=== PATIENT | female | born 1975 | race Caucasian/White ===

== ENCOUNTER 2017-07-27 05:55 | Inpatient (IN) | payer OTHER ==
[2017-07-22 12:32] LABS: % IMMATURE GRANULYOCYTES 0.5 % (0.0-1.1); ABSOLUTE IMMATURE GRANULOCYTES 0.04 10^3/uL (0.00-0.10); ADD DIFF? NO; ADD MORPH? NO; ADD SCAN? NO; ATYPICAL LYMPHOCYTE FLAG 0 (0-99); FRAGMENT RBC FLAG 0 (0-99); HEMATOCRIT 42.4 % (38.0-47.0); HEMOGLOBIN 14.4 g/dL (12.6-16.3); LEFT SHIFT FLG 0 (0-99); LIPEMIA HEMOLYSIS FLAG 90 (0-99); MEAN CELL VOLUME 91.4 fL (81.5-99.8); PLATELET CLUMPS FLAG 0 (0-99); PLATELET COUNT 327 10^3/uL (150-400); RED BLOOD CELL COUNT 4.64 10^6/uL (4.18-5.33); RED CELL DISTRIBUTION WIDTH 12.1 % (11.5-15.2)
[2017-07-22 12:42] LABS: INR 0.92 (0.83-1.16); PROTIME(PATIENT) 12.3 SEC (12.0-15.0)
[2017-07-22 12:43] LABS: APTT 27.1 SEC (23.0-38.0)
--- NOTE | 2017-07-23 08:32 | CPEKG ---
Heart Rate: 114 RR Interval: 526 P-R Interval: 132 QRSD Interval: 72 QT Interval: 332 QTC Interval: 458 P Glasgow: 15 QRS Glasgow: 5 T Wave Glasgow: 14 EKG Severity - OTHERWISE NORMAL ECG - EKG Impression: SINUS TACHYCARDIA Electronically Signed By: Gabi Henriquez 23-Jul-2017 21:24:09
--- NOTE | 2017-07-26 16:20 | GHP ---
[f rep st] PREOP HISTORY AND PHYSICAL DATE OF ADMISSION: 07/27/2017 HISTORY OF PRESENT ILLNESS: The patient is a pleasant 41-year-old, right-hand dominant woman well known to my practice. The patient has had a very long history of chronic neck pain and upper extremity symptoms. Twelve years ago, she underwent a C5 to C7 anterior diskectomy, fusion and instrumentation by myself. Postoperatively, she did well and her symptoms worsened later. 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 Over the years, she has dealt with chronic pain and although the second surgery did help as well, she is now dealing with chronic neck pain mainly due to facet joint arthropathy and severe degenerative disk disease. She had an incident about 5-weeks ago when she was swimming, she felt sudden onset of bilateral upper extremity paresthesias and on MRI is showing a large disk herniation at C7 -T1 as well as severe junctional degenerative disk disease C4-5 and C7-T1. She is being admitted for revision surgery. Patient denies any loss of bowel or bladder control, but does have some loss of balance. She has tried numerous nonoperative treatments for the past 10-years including facet joint injections, facet joint ablation, physical therapy, massage therapy, TENS unit, Medrol Dosepak, numerous pain medications, which she is currently on, and acupuncture. None of these have given her significant relief. She also has developed adrenal insufficiency and has chronic daily headaches. SOCIAL HISTORY: Negative for tobacco. She uses alcohol occasionally. FAMILY HISTORY: Significant for lymphoma and heart disease. PAST MEDICAL HISTORY: Asthma, headaches, and depression. 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 ALLERGIES: To medications are none. MEDICATIONS: Include: 1. Nucynta ER. 2. Oxy IR. 3. Horizant. 4. Amrix. PHYSICAL EXAM: GENERAL: The patient is alert and oriented x3. Gait is normal. CARDIAC: Regular rate and rhythm without detectable murmur, rub or gallop. LUNGS: Clear to auscultation. She has no wheezing or rhonchi. NEUROLOGIC: Cervical range of motion is diminished in all four directions. Strength of bilateral upper extremities and lower extremities is 5/5 throughout. Light touch is diminished in the left thumb, index, long and ring finger and diminished in the right small finger. Reflexes are all 1/4. Spurling exam is negative x2. She is tender to palpation posteriorly proximal and distal to the previous scar along the cervical spine. Her cervical wounds anteriorly and posteriorly are well healed. There are no signs of infection. RADIOGRAPHIC STUDIES: Plain films including flexion and extension, lateral C- spine film shows a retrolisthesis at C4-5 with extension and instability. MRI shows severe degenerative disk disease, which is junctional at C4-5 and C7-T1. There is also what appears to be a large disk herniation at C7-T1 with mild stenosis, but no myelomalacia. IMPRESSION: 1. Junctional severe degenerative disk disease with retrolisthesis at C4-5. 2. Junctional severe degenerative disk disease C7-T1 with central disk herniation. 3. Twelve years status post C5-C7 anterior cervical discectomy and fusion with instrumentation. 4. Eleven years status post revision anterior C6-7 and posterior C5-C7 instrumentation and fusion. 5. Chronic cervicalgia. PLAN: The patient will undergo revision surgery as she has undergone 10-years of chronic pain management with really overall no improvement. She has a nonsmoker. She has no psychological issues that would impede her recovery. She is motivated to get better. My recommendation is an anterior approach removing the C5-C7 plate and screws, C4-5 anterior diskectomy and fusion, C7-T1 anterior diskectomy and fusion with instrumentation at both levels. Postoperatively, we will use a hard cervical collar. She also knows not to take anti-inflammatories postoperatively. She has been instructed of the potential risks, benefits, and possible complications including, but not limited to, dural tear with CSF leak, meningitis, nerve root injury, partial or complete paralysis, infection, dysphagia, aphonia, DVT, PE, pneumonia, stroke, heart attack, hemorrhage, blindness, and . Questions have been answered thoroughly. She will be n.p.o. after midnight tonight. I anticipate due to swallowing difficulties, and potential pain management issues, that the patient will require at least a 3-night hospital stay including the night of surgery. /[id number]/MODL MTDD
[~2017-07-27 05:55] MED LIST: LIDOCAINE 1% 2 ML INJ ONE; VANCOMYCIN PHARMACY TO DOSE MISC ONE
[2017-07-27] MEDS ORDERED: VANCOMYCIN HCL/NORMAL SALINE 250 ML IV ONE ×2 (06:00→07:15)
[2017-07-27] MEDS ORDERED: GENTAMICIN 80 MG/NACL 100 ML IV ONE ×2 (06:00→07:15)
[2017-07-27] MEDS ORDERED: LR 1,000 ML IV ONE (06:37)
[2017-07-27] MEDS ORDERED: LIDOCAINE 1% 2 ML INJ ID PRN (06:37)
[2017-07-27] MEDS ORDERED: AVITENE POWDER 1 GM JAR TP ONE (06:55)
[2017-07-27] MEDS ORDERED: THROMBIN (BOVINE) 20,000 UNIT VIAL TP ONE (06:55)
[2017-07-27] MEDS ORDERED: BACITRACIN 50,000 UNITS/10 ML SYR IRR ONE (06:56)
[2017-07-27] MEDS ORDERED: MIDAZOLAM 2 MG/2 ML VIAL IVP ONE (06:58)
--- NOTE | 2017-07-27 06:59 | PDANEPAE ---
ANE History of Present Illness here for revision ACDF ANE Past Medical History - Cardiovascular History Hx Hypertension: No Hx Arrhythmias: No Hx Chest Pain: No Hx Coronary Artery / Peripheral Vascular Disease: No Hx CHF / Valvular Disease: No Hx Palpitations: No Cardiovascular History Comment: IRREGULAR HEART RHYTHM IN PAST-NOW RESOLVED HAD ILR - NO EPISODES SINCE - CAUSED BY MOLD IN HOME - Pulmonary History Hx COPD: No Hx Asthma/Reactive Airway Disease: Yes Hx Recent Upper Respiratory Infection: No Hx Oxygen in Use at Home: No Hx Sleep Apnea: No Sleep Apnea Screening Result - Last Documented: Negative Pulmonary History Comment: EXERCISE INDUCED ASTHMA. PAST HX -POST ANESTH NEEDED NEBULIZER - Neurologic History Hx Cerebrovascular Accident: No Hx Seizures: No Hx Dementia: No Neurologic History Comment: MIGRAINES - Endocrine History Hx Diabetes: No Hypothyroid: Yes Hyperthyroid: No Endocrine History Comment: HYPOTHYROID. ADRENAL INSUFFICIENCY - Renal History Hx Renal Disorders: No Renal History Comment: BLADDER SPASMS IN PAST POST CATHETER - Liver History Hx Hepatic Disorders: No - Neurological & Psychiatric Hx Hx Neurological and Psychiatric Disorders: Yes Neurological / Psychiatric History Comment: ANXIETY & DEPRESSION - Cancer History Hx Cancer: No - Congenital Disorder History Hx Congenital Disorders: No - GI History Hx Gastrointestinal Disorders: No - Other Health History Other Health History: NEG - Chronic Pain History Chronic Pain: Yes (NECK & HEADACHES) - Surgical History Prior Surgeries: SPINAL FUSION & REVISION. BREAST REDUCTION. MYOMECTOMY. APPENDECTOMY. ILR IMPLANTED & REMOVED ANE Review of Systems Review of systems is: negative Review of Systems: - Exercise capacity Exercise capacity: >=4 METS METS (RN): 4 METS ANE Patient History - Allergies Allergies/Adverse Reactions: Penicillins Allergy (Intermediate, Verified 06/10/13 12:24) Hives - Home Medications Home medications: home medication list seen and reviewed Home Medications: Albuterol [Proventil Inhaler HFA (*)] 1 - 2 puffs IH DAILY PRN 07/12/17 [Last Taken 05/25/17] Amitriptyline HCl [Elavil 10 mg (*)] 30 mg PO HS 07/12/17 [Last Taken 07/26/17] Cyclobenzaprine HCl [Amrix] 30 mg PO DAILY 07/12/17 [Last Taken 07/22/17] Gabapentin Enacarbil [Horizant] 600 mg PO BID 07/12/17 [Last Taken 07/27/17] Hydrocortisone [Cortef 10 mg (*)] 10 - 30 mg PO BID 07/12/17 [Last Taken 06:00] Ibuprofen/Famotidine [Duexis 800-26.6 mg Tablet] 1 each PO BID 07/12/17 [Last Taken 07/06/17] Kavinace Ultram Pm 2 mg PO HS PRN 07/12/17 [Last Taken 07/06/17] LORazepam [Ativan (*)] 1 - 3 mg PO DAILY PRN 07/12/17 [Last Taken 07/22/17] LORazepam [Ativan 2 mg tab] 1 - 3 tab PO HS 07/12/17 [Last Taken 07/22/17] Levomilnacipran HCl [Fetzima] 120 mg PO DAILY 07/12/17 [Last Taken 07/27/17] Nature Thyroid 113.75mg 1 each PO DAILY 07/12/17 [Last Taken 07/27/17 05:00] Progesterone, Micronized [Progesterone] 200 mg PO DAILY 07/12/17 [Last Taken 10/01] Sumatriptan Succinate [Imitrex] 100 mg PO DAILY PRN 07/12/17 [Last Taken ] Tapentadol HCl [Nucynta ER] 50 mg PO BID 07/12/17 [Last Taken 07/26/17 19:30] Tapentadol HCl [Nucynta ER] 100 mg PO BID 07/12/17 [Last Taken Unknown] clonazePAM [klonoPIN (*)] 1 mg PO DAILY 07/12/17 [Last Taken 07/22/17] diphenhydrAMINE HCL [Unisom] 50 - 100 mg PO HS PRN 07/12/17 [Last Taken 07/26/17 ] oxyCODONE HCL/ACETAMINOPHEN [Percocet 7.5-325 mg Tablet] 1 each PO Q6HRS PRN [Last Taken 07/26/17 06:00] traMADol [Ultram 50 mg (*)] 50 mg PO BID PRN 07/12/17 [Last Taken 07/06/17] - NPO status NPO Status: no food or drink >8 hours NPO Since - Liquids (Date): 07/26/17 NPO Since - Liquids (Time): 22:30 NPO Since - Solids (Date): 07/26/17 NPO Since - Solids (Time): 18:30 - Smoking Hx Smoking Status: Former smoker - Family Anes Hx Family Hx Anesthesia Complications: NEG ANE Labs/Vital Signs - Labs Result Diagrams: 07/22/17 11:56 - Vital Signs Blood Pressure: 154/105 Heart Rate: 116 Respiratory Rate: 16 O2 Sat (%): 95 Height: 172.72 cm Weight: 84.368 kg ANE Physical Exam - Airway Neck exam: FROM Mallampati Score: Class 1 - Pulmonary Pulmonary: no respiratory distress - Cardiovascular Cardiovascular: regular rate and rhythym - ASA Status ASA Status: II ANE Anesthesia Plan Anesthesia Plan: general endotracheal anesthesia
[2017-07-27] MEDS ORDERED: fentaNYL 100 MCG/2 ML INJ ONE ×2 (07:05→07:54)
[2017-07-27] MEDS ORDERED: GENTAMICIN 20 MG/2 ML IV ONE (07:15)
[2017-07-27] MEDS ORDERED: PROPOFOL/EMULSION 500 MG/50 ML BOTTLE IV ONE ×2 (07:15→08:41)
--- NOTE | 2017-07-27 07:17 | PDHPUP ---
History & Physical Update H&P update statement: This history and physical update is based on an assessment of the patient which was completed after admission or registration (within 24 hours), but prior to the surgery/procedure. H&P update: H&P reviewed & patient examined, no change in patient's condition since H&P completed
[2017-07-27] MEDS ORDERED: KETAMINE 100 MG/10 ML SYR ONE (07:24)
[2017-07-27] MEDS ORDERED: PROPOFOL 200 MG/20 ML VIAL ONE ×2 (07:50→10:32)
[2017-07-27] MEDS ORDERED: NALOXONE HCL 0.4 MG/ML INJ IVP PRN (09:14)
[2017-07-27] MEDS ORDERED: fentaNYL 100 MCG/2 ML INJ IVP PRN (09:14)
[2017-07-27] MEDS ORDERED: LABETALOL HCL 50 MG/10 ML SYR IVP PRN (09:14)
[2017-07-27] MEDS ORDERED: ONDANSETRON 4 MG/2 ML VIAL IVP PRN ×2 (09:14→12:03)
[2017-07-27] MEDS ORDERED: PROMETHAZINE HCL 25 MG/ML INJ IVP PRN (09:14)
[2017-07-27] MEDS ORDERED: DEXAMETHASONE 4 MG/ML VIAL IVP PRN (09:14)
[2017-07-27] MEDS ORDERED: ALBUTEROL 3 ML DEYVIAL IH PRN (09:14)
[2017-07-27] MEDS ORDERED: HYDROmorphONE/DILAUDID 1 MG/ML INJ IVP PRN (09:14)
[2017-07-27] MEDS ORDERED: HYDROmorphONE/DILAUDID 2 MG/ML INJ ONE ×2 (09:25→11:24)
[2017-07-27] MEDS ORDERED: HYDROmorphONE/DILAUDID 1 MG/ML INJ ONE (11:54)
--- NOTE | 2017-07-27 11:56 | POSTANESTH ---
Post Anesthetic Evaluation Cardiovascular Status: Normal, Stable Respiratory Status: Normal, Stable Level of Consciousness/Mental Status: Can Participate in Eval Pain Control: Adequate, Prn Tx Ordered, Inadeq, Add Tx Required Nausea/Vomiting Control: Adequate, Prn Tx Ordered Complications Possibly Related to Anesthesia: None Noted
[2017-07-27] MEDS ORDERED: MAGNESIUM HYDROXIDE 30 ML UDCUP PO PRN (12:03)
[2017-07-27] MEDS ORDERED: ONDANSETRON DISINTEGRATING 4 MG TAB PO PRN (12:03)
[2017-07-27] MEDS ORDERED: LACTULOSE 20 GM/30 ML UDCUP PO PRN (12:03)
[2017-07-27] MEDS ORDERED: ZOLPIDEM TARTRATE 5 MG TAB PO PRN (12:03)
[2017-07-27] MEDS ORDERED: BISACODYL 10 MG SUPP PR PRN (12:03)
[2017-07-27] MEDS ORDERED: POLYETHYLENE GLYCOL 3350 17 GM PKT PO PRN (12:03)
[2017-07-27] MEDS ORDERED: diphenhydrAMINE 25 MG CAP PO PRN (12:03)
--- NOTE | 2017-07-27 12:03 | POSTOPPROG ---
Post Op Note Date of Operation: 07/27/17 Surgeon: Yani Schultz Etiquette Coach: Juice Bassett SA Anesthesiologist: Finn Berger Anesthesia: GET(General Endotracheal) Pre-op Diagnosis: junctional severe DDD C4-5 and C7-T1, s/p C5-7 ACDF/I Post-op Diagnosis: same Indication: severe cervicalgia, Headaches Procedure: Removal C5-7 inst, C4-5 and C7-T1 ACDF/I Findings: severe DDD and large osteophytes Inf/Abcess present in the surg proc area at time of surgery?: No Depth: Deep Incisional (Fascial) EBL: 100 cc Total fluids administered: 1300 cc Complications: None. No changes in neuromonitoring through out case.
[2017-07-27] MEDS ORDERED: ALBUTEROL 60 PUFFS/8 GM MDI IH PRN (12:14)
[2017-07-27] MEDS ORDERED: LORAZEPAM PO PRN (12:14)
[2017-07-27] MEDS ORDERED: NON-FORMULARY NEW DRUG (Sumatriptan Succinate [Imitrex] 100 MG) PO PRN (12:14)
[2017-07-27] MEDS ORDERED: NS 1,000 ML IV SCH (12:15)
[2017-07-27] MEDS ORDERED: ALBUTEROL 200 PUFFS/18 GM MDI IH PRN (12:43)
[2017-07-27] MEDS ORDERED: DEXAMETHASONE 10 MG/ML VIAL IV ONE (13:15)
[2017-07-27] MEDS ORDERED: DIAZEPAM 10 MG/2 ML SYR ONE (13:55)
[2017-07-27] MEDS: DIAZEPAM 10 MG/2 ML SYR IVP PRN ×2 (13:56→21:01)
[2017-07-27] MEDS ORDERED: ALBUTEROL 3 ML DEYVIAL ONE (15:15)
[2017-07-27] MEDS ORDERED: HYDROCORTISONE 100 MG/2 ML VIAL ONE (15:20)
[2017-07-27] MEDS ORDERED: LORazepam 2 MG/ML INJ ONE (15:24)
[2017-07-27] MEDS ORDERED: SUMAtriptan 50 MG TAB PO PRN (15:37)
[2017-07-27 15:46] LABS: % IMMATURE GRANULYOCYTES 0.6 % (0.0-1.1); ABSOLUTE IMMATURE GRANULOCYTES 0.14 10^3/uL (0.00-0.10); ADD DIFF? NO; ADD MORPH? NO; ADD SCAN? NO; ATYPICAL LYMPHOCYTE FLAG 0 (0-99); FRAGMENT RBC FLAG 0 (0-99); HEMATOCRIT 41.6 % (38.0-47.0); HEMOGLOBIN 14.1 g/dL (12.6-16.3); LEFT SHIFT FLG 0 (0-99); LIPEMIA HEMOLYSIS FLAG 90 (0-99); MEAN CELL HEMOGLOBIN 30.9 pg (27.9-34.1); MEAN CELL HEMOGLOBIN CONCENTR. 33.9 g/dL (32.4-36.7); MEAN CELL VOLUME 91.2 fL (81.5-99.8); PLATELET CLUMPS FLAG 10 (0-99); PLATELET COUNT 405 10^3/uL (150-400); RED BLOOD CELL COUNT 4.56 10^6/uL (4.18-5.33); RED CELL DISTRIBUTION WIDTH 12.9 % (11.5-15.2)
--- NOTE | 2017-07-27 15:53 | ASMTCMCOM ---
CM Note CM Note Notes: Pt is s/p C4-5, C7-T1 fusion and revision surgery. PT/OT pending. Pt transferred to ICU this afternoon. CM will follow for any d/c needs. Date Signed: 07/27/2017 03:52 PM Electronically Signed By:Ne Smiley
[2017-07-27] MEDS ORDERED: DEXMEDETOMIDINE HCL 400 MCG in NS 100 ML IV SCH (16:00)
[2017-07-27] MEDS: ACETAMINOPHEN 500 MG TAB PO SCH (16:11)
[2017-07-27] MEDS: HYDROCORTISONE 100 MG/2 ML VIAL IVP SCH (17:14)
[2017-07-27 17:51] LABS: ANION GAP 12 mEq/L (8-16); CALCIUM 7.6 mg/dL (8.5-10.4); CARBON DIOXIDE 19 mEq/l (22-31); CHLORIDE 109 mEq/L (97-110); CREATININE 0.5 mg/dL (0.6-1.0); GLOMERULAR FILTRATION RATE > 60; GLUCOSE 130 mg/dL (70-100); POTASSIUM 4.1 mEq/L (3.5-5.2); SODIUM 140 mEq/L (134-144)
[2017-07-27] MEDS: HYDROCORTISONE 10 MG TAB PO SCH (18:38)
--- NOTE | 2017-07-27 20:25 | GCON ---
[f rep st] CONSULTATION DATE OF CONSULTATION: 07/27/2017 REFERRING PHYSICIAN: Dr. Lares REASON FOR CONSULTATION: Shortness of breath, anxiety. HISTORY OF PRESENT ILLNESS: A 41-year-old female followed closely by Dr. Lares for chronic neck pain and upper extremity sequelae. Twelve years ago, she underwent C5 to C7 anterior diskectomy, fusion, and instrumentation. A year later, she underwent revision anterior surgery of nonunion of C6 and 7 and a C5- C7 posterior fusion. Over the years, she dealt with chronic pain due to facet joint arthropathy and severe degenerative disk disease. About 5 weeks ago, she was swimming and felt sudden onset of bilateral upper extremity paresthesias, and MRI showed large disk herniation at C7-T1. Today, she underwent removal of C5-C7 instruments, C4-5 and C7-T1 ACDF/I. The patient was transferred from the PACU to the floor and developed sudden onset of shortness of breath, gasping for air. Her oxygenation remained stable above the 90s. Per her surgeon's request, the patient has decreased her chronic pain medications to half the dose for the last 3 weeks and she denies any symptoms consistent with withdrawal, including shakes, diarrhea, abdominal cramping, or sweats. She normally takes Klonopin 1 mg in the morning and Ativan 2 mg at night. She may take an additional dose if needed. She was advised to stop taking these medications and use only the Valium prescribed for her spasms. REVIEW OF SYSTEMS: I completed a 10-point review of systems negative except as noted in HPI. PAST MEDICAL HISTORY: PTSD, Graham disease, depression, anxiety. SURGICAL HISTORY: Cervical fusion x3, appendectomy, myomectomy. SOCIAL HISTORY: Lives in [place]. She socially drinks alcohol. No cigarettes or tobacco. HOME MEDICATIONS: Ibuprofen as needed, Ativan 2 mg 1 to 2 tablets at bedtime, gabapentin 600 mg twice daily, Amrix 30 mg daily, tramadol 50 mg twice daily p.r.n., progesterone 200 mg daily, Cortef 10 to 30 mg twice daily, amitriptyline 30 mg at bedtime, Unisom as needed, clonazepam 1 mg p.o. daily, Kavinace Ultra PM 2 mg p.o. at bedtime p.r.n., Nucynta 50 mg twice daily, Nucynta 100 mg twice daily, Nature-Throid 113.75 mg daily, Fetzima 120 mg daily , albuterol 1 to 2 puffs p.r.n., Percocet 7.5/325 mg 1 p.o. at bedtime p.r.n., sumatriptan as needed, Ativan 1 to 3 mg p.o. daily p.r.n. ALLERGIES: Penicillins, doxycycline, and typhoid vaccine. PHYSICAL EXAMINATION: VITAL SIGNS: Temperature 36.9, blood pressure was 149/100 , heart rates 130s, respirations 30, 99% on 4 L. GENERAL: Patient gasping for air, tearful, rocking forth in bed. HEENT: Cervical collar in place, removed this. The surgical incision is clean. No evidence of hematoma or swelling. CARDIOVASCULAR: Tachycardic but regular. LUNGS: Clear to auscultation bilaterally. ABDOMEN: Soft, nontender, nondistended. Positive bowel sounds. GENITOURINARY: No Leone. MUSCULOSKELETAL: 5/5 upper and lower extremity strength. NEUROLOGIC: 2 through 12 intact. PSYCHIATRIC: Anxious, tearful, restless in bed. LABORATORY DATA: BMP is pending. WBC is 23, hemoglobin is 14, hematocrit 41, platelets 405. ASSESSMENT AND PLAN: 1. Acute shortness of breath: Differential included surgical wound hematoma versus laryngeal spasm versus anxiety. Anesthesiology was called and present during episode. No need for intubation. Patient received racemic epinephrine as well as high-dose steroids. Her symptoms improved with Ativan. Suspect this was more likely anxiety. 2. History of anxiety, posttraumatic stress disorder: Will provide p.r.n. Ativan. Resume home medications. No need for Precedex at this time, but is available with great concern of gagging and retching to disturb the surgical site and lead to hematoma. 3. Graham disease. We will stress-dose steroids overnight. We will provide IV fluids. 4. Cervical neck pain: Postop day [address] Lares. 5. Deep venous thrombosis prophylaxis: SCDs. 6. Diets: Per Surgery. DISPOSITION: The patient will be transferred to the SCU for closer monitoring. Thank you for this consultation. Please call if any questions. We will follow along. Critical care time spent: 75 min with patient bedside, reviewing records, and providing treatment plan and coordinating SDU gonzález. /[id number]/MODL MTDD
[2017-07-27] MEDS: Progesterone, Micronized [Progesterone] 200 MG PO SCH (21:00)
[2017-07-27] MEDS: PROGESTERONE,MICR 100 MG CAP PO SCH (21:01)
[2017-07-27] MEDS: VANCOMYCIN HCL/NORMAL SALINE 250 ML IV SCH (21:11)
[2017-07-27] MEDS: AMITRIPTYLINE HCL 10 MG TAB PO SCH (21:30)
[2017-07-27] MEDS: LORazepam 2 MG/ML INJ IVP PRN (22:58)
[2017-07-28] MEDS: ACETAMINOPHEN 500 MG TAB PO SCH ×4 (00:35→21:53)
[2017-07-28] MEDS: GABAPENTIN ENACARBIL 600 MG PO SCH ×3 (00:36→20:43)
[2017-07-28] MEDS: FAMOTIDINE 20 MG TAB PO SCH ×3 (00:36→20:44)
[2017-07-28] MEDS: SENNOSIDES/DOCUSATE SODIUM TAB PO SCH ×3 (00:36→20:45)
[2017-07-28] MEDS: TAPENTADOL HCL 50 MG PO SCH ×3 (00:37→20:55)
[2017-07-28] MEDS: TAPENTADOL HCL 100 MG PO SCH ×3 (00:37→20:54)
[2017-07-28] MEDS: HYDROCORTISONE 100 MG/2 ML VIAL IVP SCH ×2 (00:45→06:20)
[2017-07-28] MEDS: DIAZEPAM 10 MG/2 ML SYR IVP PRN (03:18)
[2017-07-28] MEDS: oxyCODONE IR 5 MG TAB PO PRN ×4 (06:19→18:22)
--- NOTE | 2017-07-28 07:40 | SOAPPROG ---
SOAP Progress Note Assessment/Plan: Assessment: Pt is s/p removal C5-7 anterior instrumentation, and C4-5 and C7-T1 ACDF/I. Pt had severe anxiety/possible laryngospasm resulting in transfer to step down. Pt remains well oxygenated and neuro intact. Plan: 07/28/17 07:36 OK to transfer to . PT, OT, speech therapy. Subjective: Pt states she's doing better. No new arm or leg symptoms. Pt denies sob. Pt complains of trapezius pain and wants more pain medication. Objective: Vital Signs Temp Pulse Resp BP Pulse Ox 36.8 C 110 H 18 125/83 H 97 07/28/17 00:00 07/28/17 00:00 07/28/17 00:00 07/28/17 00:00 07/28/17 00:00 Laboratory Results 07/27/17 15:30 07/28/17 06:40 07/27/17 07/28/17 07/29/17 05:59 05:59 05:59 Intake Total 1745.8 Output Total 700 Balance 1045.8 PT 12.3 SEC (12.0-15.0) 07/22/17 12:00 INR 0.92 (0.83-1.16) 07/22/17 12:00 Anterior C spine wound clean and dry. Mild swelling. Trachea is midline. BUE and BLE 5/5 strength. ICD10 Worksheet Patient Problems: Problems Problem Status Onset Ventricular premature complex Acute
--- NOTE | 2017-07-28 07:41 | GOP ---
[f rep st] OPERATIVE REPORT DATE OF OPERATION: 07/27/2017 SURGEON: Yani Lares MD DRINK MIXER: Jeff Bassett SA ANESTHESIOLOGIST: Jass Berger MD PREOPERATIVE DIAGNOSIS: Include: 1. Twelve years status post C5-C7 anterior diskectomy fusion with instrumentation. 2. Eleven years status post revision anterior C5-C7 fusion with instrumentation and C5-C7 posterior fusion with instrumentation for nonunion at C6-7. 3. 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 4. C7-T1 central disc herniation. POSTOPERATIVE DIAGNOSIS: Include: 1. Twelve years status post C5-C7 anterior diskectomy fusion with instrumentation. 2. Eleven years status post revision anterior C5-C7 fusion with instrumentation and C5-C7 posterior fusion with instrumentation for nonunion at C6-7. 3. 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 4. C7-T1 central disc herniation. PROCEDURE PERFORMED: Removal of C5-C7 anterior plate and screws, exploration of C5-C7 arthrodesis, C 4-5 anterior diskectomy, fusion with Ti-Gil Crystal PEEK cage, and instrumentation. C7-T1 anterior diskectomy fusion with PEEK cage and instrumentation. FINDINGS: Solid arthrodesis C5-7. No breakage or loosening of the C5-C7 instrumentation. C4-5 and C7-T1 showed severe junctional degenerative disk disease with [id number]-ra-mplt contact and bilateral fora manan stenosis. C7-T1 showed a broad-based central disc herniation. ESTIMATED BLOOD LOSS: 100 cc. INDICATIONS: The patient is a pleasant 41-year-old, right-hand dominant woman, well known to my prac mere. Twelve years ago, she underwent a C5-C7 ACDF by myself and did well. Then, the C6-7 level bec juan a nonunion and she underwent revision surgery a year later in the form of an anterior C5-C7 and p osterior C5-C7 fusion and instrumentation. She did well for a few years, but then gradually had wors ening chronic neck pain and has been found to have severe junctional degenerative disk disease at C4- 5 and C7-T1. She is a nonsmoker. She has tried numerous nonoperative treatments including pain elena gement, physical therapy, massage therapy, facet joint injection, facet joint ablation and pain medic ation. She has elected to undergo surgery. No guarantees were given in regard to surgical outcome. Potential risks, benefits, and possible complications have been thoroughly discussed with her and he r at length including but not limited to, dural tear with CSF leak, meningitis, nerve root in jury, partial or complete paralysis, injury to the esophagus, trachea, carotid artery, spinal cord, d ysphagia, aphonia, nonunion, breakage or pullout of internal fixation, need for further surgery, kristie adam, DVT, PE, pneumonia, stroke, heart attack, hemorrhage, blindness, and . The patient's ques tions were answered thoroughly preoperatively. DESCRIPTION OF PROCEDURE: After obtaining both written and verbal consent from the patient, she was brought to the operating room, where she underwent a general endotracheal intubation. Patient receiv ed IV vancomycin and IV gentamicin. Leoen catheter was placed. After intubation, she was positioned with her head and neck on a Anderson headrest in mild extension. A lateral fluoroscopic x-ray was o btained for localization. Neuro monitoring was set up including somatosensory evoked potentials and motor evoked potentials, EMGs including the recurrent laryngeal nerves. Baseline potentials were all normal. The anterior aspect of the cervical spine was prepped and draped in the normal sterile critical access hospital ion. A timeout was performed with the entire operating room team confirming the patient's name, date of , planned surgical procedure, antibiotics given and allergies to medications. A left-sided paramedian longitudinal incision was made over the anterior aspect of the cervical spine from C4 down to T1. The incision was brought down through skin and subcutaneous tissues into the ov erlying platysma, which was sharply incised with Bovie cautery. There was an abundant amount of scar tissue from her prior 2 anterior surgeries. Care was taken to protect the external jugular vein. T he deep cervical fascia was incised with Bovie cautery as well. The trachea and the esophagus were g ently retracted toward the midline. The carotid sheath and its contents were identified and avoided and dissection was carried out medial to those structures. The pretracheal and prevertebral fascia w ere bluntly dissected. The anterior plate that had been previously placed was identified at C5-C7. There were no signs of infection and there was no sign of loosening or hardware failure. This was a Synthes plate, small stature and was removed with an interlocking screwdriver and then a regular scre wdriver and the plate was removed using a Perales and gently lifting it off the anterior spine from C5 t o C7. The previous arthrodesis was explored and found to be completely solid. An intraoperative x-r ay had been obtained just prior to removal with 2 bent spinal needles placed 1 above and 1 directly b elow the construct and this did verify that the needle had been placed at the proposed site of furthe r surgery which were C4-5 and C7-T1. Then self-retaining retractors were placed. The operating micr oscope was brought in for further visualization. The 12 mm [place] pin was placed 1 at C4 and 1 at C5 and this level was 1st addressed. The disk space at C4-5 was severely degenerative with a large ant erior osteophyte overlying it and this was removed with a 5 mm round bur and the local autogenous bon e graft was saved for the further arthrodesis. Under the microscope, a 15 blade knife was used to cr eate an annulotomy, but the disc was so degenerative that there was very little of it left. A small Perales was used to remove the annular attachment and a pituitary [place] rongeur was used to remove the r emnant of the degenerative disc back to the posterior longitudinal ligament. There was central steno sis identified mainly due to posterior longitudinal ligament hypertrophy and this was taken down with a 1 and 1.5 mm Kerrison. Foraminotomies were also performed using a 2 mm Kerrison. A 5 mm round an d barrel-shaped bur were used to create parallel endplates at the C4-5 level and local bone graft was saved again. Care was taken to protect the spinal cord at all times and the exiting nerve roots. T here were no changes in spinal cord monitoring. Trials from the [employer] tray were then utili zed and the best fitting PEEK trial was a 9 mm. Therefore, a 14 x 11 x 9 mm lordosed [employer] Crystal Ti-Gil PEEK cage was chosen, packed with local autogenous bone graft and demineralized bone matrix. It was tamped into position at C4-5 without any changes on spinal cord monitoring. It was recessed about 1 mm and a micro nerve hook was used to palpate posterior to the bone graft. This ens ured that there was no compressive pathology on the spinal cord. Then, at this time, a 17 mm plate w hich was a Sapphire plate by [employer] was chosen as the appropriate length and contoured into cervical lordosis and then screws were placed 2 at C4 and 2 at C5 with good purchase. All screws wer e 12 mm in length with the exception of the right C4 screw was 14 mm in length. The interlocking scr ews were then tightened down and torqued per the sales planner's recommendation. Then, the C7-T1 leve l was addressed. Again, this level had a very large anterior osteophyte overlying the disk space eunice t had to be removed initially with a 5 mm round bur while protecting the surrounding structures. Niko par pins were placed 1 at C7 and 1 at T1 and very minimal distraction performed and again this disc s pace with severely degenerative it was dumm-bo-kwrd contact, using a 5 mm round bur and then __ curette to decorticate the vertebral endplates, the remnant of the disk was removed. The posterio r longitudinal ligament did have an annular tear and a central disc herniation was identified which w as broad-based causing mild central stenosis. This was removed using a pituitary Alonzo as well. For aminotomies were performed using 1.5 and 2 mm Kerrison bilaterally. We then trialed using the [employer] Elements System again were utilized and the best fitting cage was a 9 mm. Therefore, a 14 x 11 x 9 mm lordosed PEEK cage which is Ti-Gil coated was chosen and packed with local autogenous bone graft, as well as demineralized bone matrix. The Crystal PEEK cage was tamped into position at C7-T1. It had excellent purchase of the endplates and a micro nerve hook was used to palpate posterior to the b one graft and showed no compressive pathology. Then, a 19 mm Sapphire Plate was chosen and contoured into cervical lordosis. It was placed under direct visualization using 4 mm diameter x 12 mm length self-drilling screws, both two at C7 and 2 at T1 with excellent purchase. The interlocking screws w ere then tightened down and torqued, again per sales planner's recommendation. This had good purchase and then an AP and lateral fluoroscopic x-ray were obtained showing good position of internal fixati on at C4-5 and at C7-T1. Screws were well-seated. The PEEK cages were also appropriately placed. T hen under loupe magnification hemostasis was meticulously obtained with bipolar cautery, hemoclips, t hrombin-soaked Gelfoam. This was done until the wound was completely dry prior to closure. Furtherm ore, the trachea and the esophagus were left in excellent condition, as well as the carotid sheath an d its contents and the spinal cord. A drain was not necessary as hemostasis was able to be completel y obtained prior to closure. A 2-0 undyed Vicryl was used to close the deep fascial layer, including the platysma followed by a 4-0 Prolene in a subcuticular running fashion in the skin. Steri-Strips were applied. Sterile dressing was placed. A [place] J firm collar was placed. A Leone catheter was removed. The patient was extubated in the operating room, brought to the recovery room in satisfacto ry condition. FLUIDS: Given 1300 cc LR. COMPLICATIONS: None. There were no changes in somatosensory evoked potentials, motor evoked potenti als, nor any EMGs including the recurrent laryngeal nerves. POSTOPERATIVE PLAN: Close neurologic observation, close airway observation, PT/OT, speech therapy, a nd pain control. /[id number]/MODL
[2017-07-28] MEDS ORDERED: NON-FORMULARY NEW DRUG (Progesterone, Micronized [Progesterone] 200 MG) PO SCH (09:00)
[2017-07-28] MEDS ORDERED: clonazePAM 1 MG TAB PO SCH (09:00)
[2017-07-28] MEDS ORDERED: CYCLOBENZAPRINE 10 MG TAB PO SCH (09:00)
[2017-07-28] MEDS ORDERED: CYCLOBENZAPRINE HCL 30 MG PO SCH (09:00)
[2017-07-28] MEDS: clonazePAM 0.5 MG TAB PO SCH (09:09)
[2017-07-28] MEDS: THYROID PO SCH (09:10)
[2017-07-28] MEDS: LEVOMILNACIPRAN HCL 120 MG PO SCH (09:10)
[2017-07-28] MEDS: VANCOMYCIN HCL/NORMAL SALINE 250 ML IV SCH (09:11)
[2017-07-28] MEDS: CYCLOBENZAPRINE HCL 30 MG PO SCH (09:13)
[2017-07-28] MEDS: DIAZEPAM 5 MG TAB PO PRN ×3 (09:13→20:41)
[2017-07-28] MEDS: HYDROCORTISONE 10 MG TAB PO SCH (09:15)
--- NOTE | 2017-07-28 10:23 | HOSPPROG ---
Hospitalist Progress Note Assessment/Plan: #SOB/possible laryngeal spasm: resolved. Compounded by anxiety #Cervical neck pain: mild swelling, concern for hematoma with retching last night. per NSGY #Chronic pain: cont home meds #Anxiety: home meds #Adrenal insufficiency: no e/o crisis. BP stable, electrolytes NL. Can resume home dose steroids tomorrow. 15mg qam, 10mg 1400 #Leukocytosis: due to steroids #DVT ppx: per NSGY Will sign off, please call is questions. Subjective: pain 6/7 in neck. No SOB Objective: Vital Signs Temp Pulse Resp BP Pulse Ox 36.4 C 108 H 17 126/91 H 92 07/28/17 08:00 07/28/17 08:00 07/28/17 08:00 07/28/17 08:00 07/28/17 08:00 Laboratory Results 07/27/17 15:30 07/27/17 07/28/17 07/29/17 05:59 05:59 05:59 Intake Total 1745.8 Output Total 700 Balance 1045.8 PT 12.3 SEC (12.0-15.0) 07/22/17 12:00 INR 0.92 (0.83-1.16) 07/22/17 12:00 - Physical Exam Constitutional: no apparent distress Eyes: PERRL Ears, Nose, Mouth, Throat: other (collar in place. Incision CDI, mild ant swelling) Cardiovascular: regular rate and rhythym Respiratory: no respiratory distress Gastrointestinal: normoactive bowel sounds Genitourinary: no bladder fullness Skin: warm Musculoskeletal: full muscle strength Neurologic: AAOx3, CN II-XII Intact Psychiatric: anxious ICD10 Worksheet Patient Problems: Problems Problem Status Onset Ventricular premature complex Acute
[2017-07-28 10:31] LABS: ANION GAP 7 mEq/L (8-16); CALCIUM 9.1 mg/dL (8.5-10.4); CARBON DIOXIDE 26 mEq/l (22-31); CHLORIDE 103 mEq/L (97-110); CREATININE 0.6 mg/dL (0.6-1.0); GLOMERULAR FILTRATION RATE > 60; GLUCOSE 116 mg/dL (70-100); POTASSIUM 4.2 mEq/L (3.5-5.2); SODIUM 136 mEq/L (134-144)
[2017-07-28] MEDS ORDERED: CEPACOL LOZENGE PO PRN (11:13)
[2017-07-28] MEDS ORDERED: HYDROCORTISONE 10 MG TAB PO SCH (14:00)
[2017-07-28] MEDS: LORazepam 2 MG/ML INJ IVP PRN ×2 (16:00→18:03)
[2017-07-28] MEDS: Progesterone, Micronized [Progesterone] 200 MG PO SCH (20:42)
[2017-07-28] MEDS: PROGESTERONE,MICR 100 MG CAP PO SCH (20:42)
[2017-07-28] MEDS: AMITRIPTYLINE HCL 10 MG TAB PO SCH (20:44)
[2017-07-28] MEDS: LORazepam 1 MG TAB PO PRN (22:31)
[2017-07-29] MEDS: DIAZEPAM 5 MG TAB PO PRN ×4 (05:31→18:37)
[2017-07-29] MEDS: oxyCODONE IR 5 MG TAB PO PRN ×5 (05:31→22:29)
[2017-07-29] MEDS: ACETAMINOPHEN 500 MG TAB PO SCH ×3 (05:34→22:29)
[2017-07-29] MEDS ORDERED: HYDROCORTISONE 10 MG TAB PO ONE ×2 (07:00)
[2017-07-29] MEDS: HYDROCORTISONE 10 MG TAB PO SCH ×2 (08:02→16:03)
[2017-07-29] MEDS: THYROID PO SCH (08:04)
[2017-07-29] MEDS: GABAPENTIN ENACARBIL 600 MG PO SCH ×2 (08:04→20:40)
[2017-07-29] MEDS: LEVOMILNACIPRAN HCL 120 MG PO SCH (08:05)
[2017-07-29] MEDS: SENNOSIDES/DOCUSATE SODIUM TAB PO SCH ×2 (08:06→20:39)
[2017-07-29] MEDS: clonazePAM 0.5 MG TAB PO SCH (08:07)
[2017-07-29] MEDS: FAMOTIDINE 20 MG TAB PO SCH ×2 (08:07→20:39)
[2017-07-29] MEDS: CYCLOBENZAPRINE HCL 30 MG PO SCH (09:38)
[2017-07-29] MEDS: Progesterone, Micronized [Progesterone] 200 MG PO SCH ×2 (09:48→20:40)
[2017-07-29] MEDS: TAPENTADOL HCL 50 MG PO SCH ×2 (10:11→21:35)
[2017-07-29] MEDS: TAPENTADOL HCL 100 MG PO SCH ×2 (10:11→21:35)
--- NOTE | 2017-07-29 10:12 | ASMTCMCOM ---
CM Note CM Note Notes: Met with patient regarding discharge poc. [place] is from [place], staying here for a couple of weeks post discharge with best friend. PT/OT recommending Home with Outpatient Rehab. Patient does not feel Home Care is necessary and states she has good support from her friend and her family. Patient plans to travel back to [place] in a couple of weeks. No CM needs anticipated at this time. CM available should needs arise. Date Signed: 07/29/2017 10:11 AM Electronically Signed By:Shelly Mccormick RN
--- NOTE | 2017-07-29 17:59 | SOAPPROG ---
SOAP Progress Note Assessment/Plan: Assessment: Pt is s/p removal C5-7 anterior instrumentation, and C4-5 and C7-T1 ACDF/I. Pt had severe anxiety/possible laryngospasm resulting in transfer to step down. Pt remains well oxygenated and neuro intact. Plan: 07/28/17 07:36 OK to transfer to . PT, OT, speech therapy. 07/29/17 17:54 post op day 2, s/p C5-7 removal ant. instrumentation, C4-5 and C7-T1 anterior discectomy, fusion, and instrumentation for severe junctional DDD. Pt having heaviness and arm pain bilaterally and tightness in anterior C-spine. C/o severe muscle spasms. Anterior C spine wound with significantly more diffuse swelling. Airway fine, and saturating above 90 percent. Plan: will increase valium to 10 mg po Q8 prn. Cont PT, OT, and speech path. Will keep in hospital for close airway observation given post op forceful coughing/choking episode in addition to revision surgery and 4 level surgery placing pt at significantly high risk for postop retropharyngeal hematoma and airway compromise (this typically occurs around post op day 3). I have instructed pt and that she will not be able to travel this Wednesday as she had planned preoperatively. Due to this she will need home health RN and PT x approx 1-2 weeks here in [place]. Subjective: Pt complain of more pain today and more muscle spasms. pt requesting higher dose of valium. Objective: Vital Signs Temp Pulse Resp BP Pulse Ox 36.9 C 121 H 16 130/90 H 95 07/29/17 16:41 07/29/17 16:41 07/29/17 16:41 07/29/17 16:41 07/29/17 16:41 Laboratory Results 07/27/17 15:30 07/28/17 10:00 07/28/17 07/29/17 07/30/17 05:59 05:59 05:59 Intake Total 1745.8 980 Output Total 700 Balance 1045.8 980 PT 12.3 SEC (12.0-15.0) 07/22/17 12:00 INR 0.92 (0.83-1.16) 07/22/17 12:00 BUE and BLE motor 5/5 although sluggish overall. Trachea midline. Anterior cervical wound: more diffuse swelling. Skin creases not as visible as yesterday. Tape irritation of skin. No Benny's syndrome. ICD10 Worksheet Patient Problems: Problems Problem Status Onset Ventricular premature complex Acute
[2017-07-29] MEDS: AMITRIPTYLINE HCL 10 MG TAB PO SCH (20:39)
[2017-07-29] MEDS: PROGESTERONE,MICR 100 MG CAP PO SCH (20:41)
[2017-07-29] MEDS: LORazepam 1 MG TAB PO PRN (22:30)
[2017-07-30] MEDS: DIAZEPAM 5 MG TAB PO PRN ×4 (00:36→22:30)
[2017-07-30] MEDS: oxyCODONE IR 5 MG TAB PO PRN ×5 (04:39→20:46)
[2017-07-30 07:37] VITALS: RESP 16
[2017-07-30] MEDS: HYDROCORTISONE 10 MG TAB PO SCH ×2 (08:20→13:23)
[2017-07-30] MEDS: SENNOSIDES/DOCUSATE SODIUM TAB PO SCH ×2 (08:21→20:45)
[2017-07-30] MEDS: clonazePAM 0.5 MG TAB PO SCH (08:22)
[2017-07-30] MEDS: FAMOTIDINE 20 MG TAB PO SCH ×2 (08:22→20:45)
[2017-07-30] MEDS: GABAPENTIN ENACARBIL 600 MG PO SCH ×2 (08:23→20:48)
[2017-07-30] MEDS: LEVOMILNACIPRAN HCL 120 MG PO SCH (08:23)
[2017-07-30] MEDS: THYROID PO SCH (08:23)
[2017-07-30] MEDS: ACETAMINOPHEN 500 MG TAB PO SCH ×3 (08:28→20:44)
[2017-07-30] MEDS: CYCLOBENZAPRINE HCL 30 MG PO SCH (10:14)
[2017-07-30] MEDS: TAPENTADOL HCL 100 MG PO SCH ×2 (10:21→22:32)
[2017-07-30] MEDS: TAPENTADOL HCL 50 MG PO SCH ×2 (10:22→22:32)
--- NOTE | 2017-07-30 11:12 | ASMTCMCOM ---
CM Note CM Note Notes: Met with patient and her .Home care list provided. They have chosen [facility] for home RN and PT. She will be staying with her friend here in [place] and asks that contact be made through her friend to arrange health visits, spoke with Bhavana at [facility] and informed her of patients friend's name and address. Contact Joann ZavalaYan, # [phone]. Anticipate dc when medically cleared. CM available for further needs that arise. Date Signed: 07/30/2017 11:11 AM Electronically Signed By:Nicolasa Hernandez RN
--- NOTE | 2017-07-30 12:12 | SOAPPROG ---
SOAP Progress Note Assessment/Plan: Assessment: Pt is s/p removal C5-7 anterior instrumentation, and C4-5 and C7-T1 ACDF/I. Pt had severe anxiety/possible laryngospasm resulting in transfer to step down. Pt remains well oxygenated and neuro intact. Plan: 07/28/17 07:36 OK to transfer to . PT, OT, speech therapy. 07/29/17 17:54 post op day 2, s/p C5-7 removal ant. instrumentation, C4-5 and C7-T1 anterior discectomy, fusion, and instrumentation for severe junctional DDD. Pt having heaviness and arm pain bilaterally and tightness in anterior C-spine. C/o severe muscle spasms. Anterior C spine wound with significantly more diffuse swelling. Airway fine, and saturating above 90 percent. Plan: will increase valium to 10 mg po Q8 prn. Cont PT, OT, and speech path. Will keep in hospital for close airway observation given post op forceful coughing/choking episode in addition to revision surgery and 4 level surgery placing pt at significantly high risk for postop retropharyngeal hematoma and airway compromise (this typically occurs around post op day 3). I have instructed pt and that she will not be able to travel this Wednesday as she had planned preoperatively. Due to this she will need home health RN and PT x approx 1-2 weeks here in [place]. 07/30/17 12:10 Pt improving overall. Still with significant posterior neck pain. Will increase valium to q 6 prn. Edema mildly improved. Will keep pt in hospital and if swelling decreases will anticipated discharge tomorrow. Subjective: Pt complains of sore throat, and significant posterior neck muscle spasms Objective: Vital Signs Temp Pulse Resp BP Pulse Ox 37.1 C 103 H 16 138/102 H 96 07/30/17 07:35 07/30/17 07:35 07/30/17 07:35 07/30/17 07:35 07/30/17 07:35 Laboratory Results 07/27/17 15:30 07/28/17 10:00 07/29/17 07/30/17 07/31/17 05:59 05:59 05:59 Intake Total 980 Balance 980 PT 12.3 SEC (12.0-15.0) 07/22/17 12:00 INR 0.92 (0.83-1.16) 07/22/17 12:00 BUE motor 5/5. No Horners syndrome. C spine anterior wound with mod. diffuse swelling. No sign of infection ICD10 Worksheet Patient Problems: Problems Problem Status Onset Ventricular premature complex Acute
[2017-07-30] MEDS: AMITRIPTYLINE HCL 10 MG TAB PO SCH (20:45)
[2017-07-30] MEDS: PROGESTERONE,MICR 100 MG CAP PO SCH (20:46)
[2017-07-30] MEDS: Progesterone, Micronized [Progesterone] 200 MG PO SCH (20:47)
[2017-07-30] MEDS: LORazepam 1 MG TAB PO PRN (22:30)
[2017-07-31] MEDS: ACETAMINOPHEN 500 MG TAB PO SCH (05:03)
[2017-07-31] MEDS: DIAZEPAM 5 MG TAB PO PRN (05:03)
[2017-07-31] MEDS: oxyCODONE IR 5 MG TAB PO PRN ×2 (05:04→08:58)
[2017-07-31 07:46] VITALS: BP 137/107; PULSE 117; TEMP 98; O2SAT 95
[2017-07-31] MEDS: FAMOTIDINE 20 MG TAB PO SCH (08:38)
[2017-07-31] MEDS: HYDROCORTISONE 10 MG TAB PO SCH (08:38)
[2017-07-31] MEDS: clonazePAM 0.5 MG TAB PO SCH (08:43)
[2017-07-31] MEDS: SENNOSIDES/DOCUSATE SODIUM TAB PO SCH (08:44)
[2017-07-31] MEDS: GABAPENTIN ENACARBIL 600 MG PO SCH (08:46)
[2017-07-31] MEDS: THYROID PO SCH (08:48)
[2017-07-31] MEDS: LEVOMILNACIPRAN HCL 120 MG PO SCH (08:49)
--- NOTE | 2017-07-31 09:33 | SOAPPROG ---
SOAP Progress Note Assessment/Plan: Assessment: Pt is s/p removal C5-7 anterior instrumentation, and C4-5 and C7-T1 ACDF/I. Pt had severe anxiety/possible laryngospasm resulting in transfer to step down. Pt remains well oxygenated and neuro intact. Plan: 07/28/17 07:36 OK to transfer to . PT, OT, speech therapy. 07/29/17 17:54 post op day 2, s/p C5-7 removal ant. instrumentation, C4-5 and C7-T1 anterior discectomy, fusion, and instrumentation for severe junctional DDD. Pt having heaviness and arm pain bilaterally and tightness in anterior C-spine. C/o severe muscle spasms. Anterior C spine wound with significantly more diffuse swelling. Airway fine, and saturating above 90 percent. Plan: will increase valium to 10 mg po Q8 prn. Cont PT, OT, and speech path. Will keep in hospital for close airway observation given post op forceful coughing/choking episode in addition to revision surgery and 4 level surgery placing pt at significantly high risk for postop retropharyngeal hematoma and airway compromise (this typically occurs around post op day 3). I have instructed pt and that she will not be able to travel this Wednesday as she had planned preoperatively. Due to this she will need home health RN and PT x approx 1-2 weeks here in [place]. 07/30/17 12:10 Pt improving overall. Still with significant posterior neck pain. Will increase valium to q 6 prn. Edema mildly improved. Will keep pt in hospital and if swelling decreases will anticipated discharge tomorrow. 07/31/17 09:30 POST OP day 4, s/ C5-7 plate removal, and C4-5 and C7-T1 ACDF/I. Pt improved nicely. Ready for discharge. Subjective: Pt complains of some nausea. No emesis. Some numbness in L hand. No choking or coughing. Objective: Vital Signs Temp Pulse Resp BP Pulse Ox 36.7 C 117 H 16 137/107 H 95 07/31/17 07:44 07/31/17 07:44 07/31/17 07:44 07/31/17 07:44 07/31/17 07:44 Laboratory Results 07/27/17 15:30 07/28/17 10:00 PT 12.3 SEC (12.0-15.0) 07/22/17 12:00 INR 0.92 (0.83-1.16) 07/22/17 12:00 BUE motor 5/5. Decreased sensation all fingers L hand. No Benny's syndrome. Anterior cervical wound with decreasing swelling; small wrinkles in skin more apparent. No sign of infection. ICD10 Worksheet Patient Problems: Problems Problem Status Onset Ventricular premature complex Acute
--- NOTE | 2017-07-31 09:45 | PDIAF ---
- Diagnosis Code Status: Full Code - Medication Management Discharge Medications: Medications to Continue on Transfer Albuterol [Proventil Inhaler HFA (*)] 1 - 2 puffs IH DAILY PRN 07/12/17 [Last Taken 05/25/17] Amitriptyline HCl [Elavil 10 mg (*)] 30 mg PO HS 07/12/17 [Last Taken 07/26/17] Cyclobenzaprine HCl [Amrix] 30 mg PO DAILY 07/12/17 [Last Taken 07/22/17] Gabapentin Enacarbil [Horizant] 600 mg PO BID 07/12/17 [Last Taken 07/27/17] Hydrocortisone [Cortef 10 mg (*)] 10 - 30 mg PO BID 07/12/17 [Last Taken 06:00] LORazepam [Ativan (*)] 1 - 3 mg PO DAILY PRN 07/12/17 [Last Taken 07/22/17] LORazepam [Ativan 2 mg tab] 1 - 3 tab PO HS 07/12/17 [Last Taken 07/22/17] Levomilnacipran HCl [Fetzima] 120 mg PO DAILY 07/12/17 [Last Taken 07/27/17] Nature Thyroid 113.75mg 1 each PO DAILY 07/12/17 [Last Taken 07/27/17 05:00] Progesterone, Micronized [Progesterone] 200 mg PO DAILY 07/12/17 [Last Taken 10/01] Sumatriptan Succinate [Imitrex] 100 mg PO DAILY PRN 07/12/17 [Last Taken ] Tapentadol HCl [Nucynta ER] 50 mg PO BID 07/12/17 [Last Taken 07/26/17 19:30] Tapentadol HCl [Nucynta ER] 100 mg PO BID 07/12/17 [Last Taken Unknown] clonazePAM [klonoPIN (*)] 1 mg PO DAILY 07/12/17 [Last Taken 07/22/17] Albuterol [Ventolin Hfa Inhaler] 1 - 2 puffs IH DAILY PRN mdi 07/31/17 [Last Taken Unknown] Amitriptyline HCl [Elavil 10 mg (*)] 30 mg PO HS tab 07/31/17 [Last Taken Unknown] Benzocaine/Menthol 27/02 [Cepacol Lozenge] 1 ea PO Q2HRS PRN lozenge 07/31/17 [ Last Taken Unknown] Cyclobenzaprine Hcl [Amrix] 30 mg PO DAILY 07/31/17 [Last Taken Unknown] Diazepam [Valium 5 MG (*)] 10 mg PO Q6HRS PRN #60 tab 07/31/17 [Last Taken Unknown] Gabapentin Enacarbil [Horizant] 600 mg PO BID 07/31/17 [Last Taken Unknown] Hydrocortisone [Cortef 10 mg (*)] 10 mg PO 1400 tab 07/31/17 [Last Taken Unknown] Hydrocortisone [Cortef 10 mg (*)] 15 mg PO DAILY tab 07/31/17 [Last Taken Unknown] LORazepam [Ativan (*)] 1 - 3 mg PO HS PRN tab 07/31/17 [Last Taken Unknown] Levomilnacipran HCl [Fetzima] 120 mg PO DAILY 07/31/17 [Last Taken Unknown] Nature Thyroid 113.75mg 1 each PO DAILY 07/31/17 [Last Taken Unknown] Ondansetron Odt [Zofran Odt 4 mg (*)] 84 mg PO Q6HRS PRN #30 tab 07/31/17 [Last Taken Unknown] Progesterone, Micronized [Progesterone] 200 mg PO HS 07/31/17 [Last Taken Unknown] Progesterone,Micronized [Prometrium] 100 mg PO HS cap 07/31/17 [Last Taken Unknown] SUMAtriptan [Imitrex 50 MG (*)] 100 mg PO DAILY PRN tab 07/31/17 [Last Taken Unknown] Tapentadol HCl [Nucynta ER] 50 mg PO BID 07/31/17 [Last Taken Unknown] Tapentadol HCl [Nucynta ER] 100 mg PO BID 07/31/17 [Last Taken Unknown] Zolpidem Tartrate [Ambien 5MG (*)] 5 mg PO HS PRN tab 07/31/17 [Last Taken Unknown] clonazePAM [Klonopin (*)] 1 mg PO DAILY tab 07/31/17 [Last Taken Unknown] oxyCODONE CR [Oxycontin] 20 mg PO BID #60 tab 07/31/17 [Last Taken Unknown] oxyCODONE HCL/ACETAMINOPHEN [Percocet 7.5-325 mg Tablet] 5 - 10 mg PO Q6HRS PRN #60 tablet 07/31/17 [Last Taken Unknown] Discharge Medications: Refer to the Discharge Home Medication list for PRN reason. - Orders Services needed: Registered Nurse, Physical Therapy Home Care Face to Face: pt seen on day of discharge Diet Recommendation: no restrictions on diet, other Diet Texture: Regular Texture Diet, Thin Liquids, Meds Whole in Puree Wound Care Instructions: daily dry dressing change with shower Activity/Weight Bearing Restrictions: No lifting more than 20 pounds - Follow Up Care Current Providers and Referrals: Derick Agustin MD [Primary Care Provider] - Yani Schultz MD [Medical Doctor] -
--- NOTE | 2017-07-31 10:20 | ASDISCHSUM ---
Discharge Information Plan Status:Home with Home Health Medically Cleared to Leave: Discharge Date: D/C Disposition: ADT D/C Disposition:Home Health Service Projected Discharge Date:07/31/2017 11:00 AM Transportation at D/C: Discharge Delay Reason: Follow-Up Date:07/31/2017 11:00 AM Discharge Slot: Final Diagnosis: Placement Information Referral Type:*Home Health Care Services Referral ID:[id number] Provider Name:[facility] Address 1:[address] Address 2: City:[place] Selection Factors: State:[place] Patient Contact Information Contact Name:CHERRYMEGANKRISTI Relationship: Address:[address] [place] [address] City:[place] Alternate Phone: State/Zip Code:[place] [phone] Email: Financial Information Financial Class:HMO and PPO Plans Primary Plan Desc:[facility] Primary Plan Number:[id number] Secondary Plan Desc: Secondary Plan Number: Assessment Information [facility] CM Progress Note CM Note CM Note Notes: Pt is s/p C4-5, C7-T1 fusion and revision surgery. PT/OT pending. Pt transferred to ICU this afternoon. CM will follow for any d/c needs. Date Signed: 07/27/2017 03:52 PM Electronically Signed By:MINH Estevez [facility] CM Progress Note CM Note CM Note Notes: Met with patient regarding discharge poc. Patient is from [place], staying here for a couple of weeks post discharge with best friend. PT/OT recommending Home with Outpatient Rehab. Patient does not feel Home Care is necessary and states she has good support from her friend and her family. Patient plans to travel back to [place] in a couple of weeks. No CM needs anticipated at this time. CM available should needs arise. Date Signed: 07/29/2017 10:11 AM Electronically Signed By:Shelly Mccormick RN [facility] CM Progress Note CM Note CM Note Notes: Met with patient and her .Home care list provided. They have chosen [facility] for home RN and PT. She will be staying with her friend here in [place] and asks that contact be made through her friend to arrange health visits, spoke with Bhavana at [facility] and informed her of patients friend's name and address. Contact Joann ParkerLuis, # [phone]. Anticipate dc when medically cleared. CM available for further needs that arise. Date Signed: 07/30/2017 11:11 AM Electronically Signed By:Nicolasa Hernandez RN Intervention Information
--- NOTE | 2017-07-31 10:21 | ASMTCMCOM ---
CM Note CM Note Notes: Pt is ready for Dc today. Alerted [facility]. Gave report # of [id number] to LUANN Licea. No other DC needs identified. Date Signed: 07/31/2017 10:20 AM Electronically Signed By:Lleo Hoskins LCSW
[2017-07-31] MEDS: CYCLOBENZAPRINE HCL 30 MG PO SCH (10:53)
[2017-07-31] MEDS: TAPENTADOL HCL 100 MG PO SCH (10:53)
[2017-07-31] MEDS: TAPENTADOL HCL 50 MG PO SCH (10:53)
[2017-08-03] MEDS ORDERED: VANCOMYCIN HCL/NORMAL SALINE 250 ML IV ONE (15:29)
== END 2017-07-31 10:48 | disposition home health service (06) | DRG 472 ==
LOC: F3N 05:55 → F2N 15:53 → F3N 07-28 10:31
PROVIDERS: ADMIT Orthopaedic Surgery Orthopaedic Surgery of the Spine; ATTEND Orthopaedic Surgery Orthopaedic Surgery of the Spine
PROC: 0RB30ZZ Excision of Cervical Vertebral Disc, Open Approach (ICD-10-PCS; principal; 2017-07-27 07:15)
PROC: 4A1004G Monitoring of Central Nervous Electrical Activity, Intraoperative, Open Approach (ICD-10-PCS; principal; 2017-07-27 07:15)
PROC: 0RG20A0 Fusion of 2 or more Cervical Vertebral Joints with Interbody Fusion Device, Anterior Approach, Anterior Column, Open Approach (ICD-10-PCS; principal; 2017-07-27 07:15)
DX: M50.321 Other cervical disc degeneration at C4-C5 level (principal); M50.33 Other cervical disc degeneration, cervicothoracic region; M50.23 Other cervical disc displacement, cervicothoracic region; E27.40 Unspecified adrenocortical insufficiency; J45.909 Unspecified asthma, uncomplicated; F32.9 Major depressive disorder, single episode, unspecified; F41.9 Anxiety disorder, unspecified; F43.10 Post-traumatic stress disorder, unspecified; Z98.1 Arthrodesis status
CPT/HCPCS: 92507-GN; 92610-GN; 97116-GP; 97161-GP; 97165-GO; 97535-GO; C1713; J1100; J1170; J1200; J1580; J2060; J2250; J2405; J2704; J3010; J3370

== ENCOUNTER → 2017-09-06 | Outpatient (CLI) | payer SELFPAY | LOC: FIMAGING 09:56 | PROVIDERS: ATTEND Orthopaedic Surgery Orthopaedic Surgery of the Spine | DX: Z09 Encounter for follow-up examination after completed treatment for conditions other than malignant neoplasm (principal); Z98.1 Arthrodesis status ==

== ENCOUNTER → 2017-11-28 | Outpatient (CLI) | payer BC | LOC: FIMAGING 09:34 | PROVIDERS: ATTEND Orthopaedic Surgery Orthopaedic Surgery of the Spine | DX: Z09 Encounter for follow-up examination after completed treatment for conditions other than malignant neoplasm (principal); Z98.1 Arthrodesis status ==